=== PATIENT | female | born 1945 | race Caucasian/White ===

== ENCOUNTER 2020-12-27 03:19 | Inpatient (IN) ==
[2020-12-27] MEDS ORDERED: Naloxone 0.4 MG/ML INJ IVP PRN (12:17)
[2020-12-27] MEDS ORDERED: Dextrose Gel 15 GM/37.5 ML TUBE PO PRN ×2 (14:44)
[2020-12-27] MEDS ORDERED: D5% in Water 1,000 ML IVC PRN (14:44)
[2020-12-27] MEDS ORDERED: *HR* Dextrose 50 % in Water (Vial) 50 ML VIAL IVP PRN (14:44)
[2020-12-27] MEDS ORDERED: Albuterol 2.5 MG/3 ML NEBULIZER IH PRN (15:26)
[2020-12-27] MEDS: Ipratropium/Albuterol Neb 3 ML IH SCH ×3 (15:56→23:54)
[2020-12-27] MEDS: Insulin LISPRO 300 UNITS/3 ML VIAL SUBQ SCH ×2 (17:19→20:43)
[2020-12-27] MEDS: Doxycycline 100 MG CAPSULE PO SCH (20:43)
[2020-12-27] MEDS ORDERED: Gabapentin 300 MG CAPSULE PO PRN (21:13)
[2020-12-27] MEDS: ALPRAZolam 0.5 MG TABLET PO PRN (21:43)
[2020-12-27] MEDS: *HR* HYDROcodone/Acet 5/325 mg TABLET PO PRN (21:43)
[2020-12-27] MEDS: Insulin DETEMIR 100 UNIT/ML X5UNITS SUBQ SCH (21:53)
[2020-12-27 22:46] LABS: Adenovirus Not Detected (Not Detect); Bordetella Pertussis Not Detected (Not Detect); Chlamydophila pneumoniae Not Detected (Not Detect); Coronavirus 229E Not Detected (Not Detect); Coronavirus HKU1 Not Detected (Not Detect); Coronavirus NL63 Not Detected (Not Detect); Coronavirus OC43 Not Detected (Not Detect); Human Metapneumovirus Not Detected (Not Detect); Human Rhinovirus/Enterovirus Not Detected (Not Detect); Influenza A Subtype 2009 H1 Not Detected (Not Detect); Influenza B Not Detected (Not Detect); Mycoplasma pneumoniae Not Detected (Not Detect); Parainfluenza Virus 1 Not Detected (Not Detect); Parainfluenza Virus 2 Not Detected (Not Detect); Parainfluenza Virus 3 DETECTED (Not Detect); Parainfluenza Virus 4 Not Detected (Not Detect); Respiratory Syncytial Virus Not Detected (Not Detect); SARS-CoV-2 Not Detected (Not Detect)
[2020-12-27 23:14] LABS: Hepatitis B Surface Antibody < 3.10 mIU/mL
[2020-12-27 23:25] LABS: Hepatitis B Surface Antigen Nonreactive (Nonreactive)
[2020-12-28] MEDS ORDERED: *HR* Metoprolol 5 MG/5 ML VIAL IVP ONE (00:24)
[2020-12-28 03:15] LABS: Basophils % 0.3 %; Eosinophils # 0.1 K/mcL (0.0-0.6); Eosinophils % 2.4 %; Immature Granulocytes % 0.3 % (0-4); Lymphocytes # 1.2 K/mcL (0.6-4.6); Lymphocytes % 31.9 %; Mean Corpuscular HGB Conc 32.3 g/dL (31.6-35.5); Mean Corpuscular Hemoglobin 34.4 pg (28.0-33.3); Mean Corpuscular Volume 106.5 fL (83.0-100.0); Mean Platelet Volume 9.8 fL (9.4-12.4); Monocytes # 0.5 K/mcL (0.0-1.3); Monocytes % 12.3 %; Platelet Count 158 K/mcL (140-400); Red Blood Count 2.91 M/mcL (3.82-4.97); Red Cell Distribution Width 15.1 % (11.5-14.5); Segmented Neutrophils % 52.8 %; White Blood Count 3.7 K/mcL (4.3-11.1)
[2020-12-28 03:33] LABS: Calcium 8.6 mg/dL (8.6-10.3); Potassium 4.5 mEq/L (3.5-5.1)
[2020-12-28] MEDS: Ipratropium/Albuterol Neb 3 ML IH SCH ×6 (03:51→23:54)
[2020-12-28] MEDS ORDERED: DilTIAZem CD (24hr) 120 MG CAP.ER.24H PO SCH (09:00)
[2020-12-28] MEDS: Insulin LISPRO 300 UNITS/3 ML VIAL SUBQ SCH ×4 (10:20→19:44)
[2020-12-28] MEDS ORDERED: 0.9 % Sodium Chloride 250 ML IVC PRN (10:48)
[2020-12-28] MEDS: predniSONE 20 MG TABLET PO SCH (10:52)
[2020-12-28] MEDS: allopurinoL 100 MG TABLET PO SCH (10:52)
[2020-12-28] MEDS: DilTIAZem CD (24hr) 180 MG CAP.ER.24H PO SCH (10:53)
[2020-12-28] MEDS: Benzonatate 100 MG CAPSULE PO SCH ×3 (11:00→19:47)
[2020-12-28] MEDS ORDERED: 0.9 % Sodium Chloride 1,000 ML PRIME SCH (11:00)
[2020-12-28] MEDS: Doxycycline 100 MG CAPSULE PO SCH ×2 (11:00→19:47)
[2020-12-28] MEDS: Sennosides/Docusate Sodium TABLET PO SCH (19:46)
[2020-12-28] MEDS: Insulin DETEMIR 100 UNIT/ML X5UNITS SUBQ SCH (19:48)
[2020-12-28] MEDS ORDERED: Menthol 1 EACH LOZENGE PO PRN (22:42)
[2020-12-29 03:53] LABS: Eosinophils % 0.3 %; Hematocrit 29.8 % (35.3-44.9); Hemoglobin 9.4 g/dL (11.5-15.4); Immature Granulocytes % 0.5 % (0-4); Lymphocytes # 0.6 K/mcL (0.6-4.6); Lymphocytes % 14.9 %; Mean Corpuscular HGB Conc 31.5 g/dL (31.6-35.5); Mean Corpuscular Hemoglobin 33.9 pg (28.0-33.3); Mean Corpuscular Volume 107.6 fL (83.0-100.0); Mean Platelet Volume 9.8 fL (9.4-12.4); Monocytes # 0.5 K/mcL (0.0-1.3); Monocytes % 11.6 %; Neutrophils # 2.8 K/mcL (1.6-8.9); Platelet Count 144 K/mcL (140-400); Red Blood Count 2.77 M/mcL (3.82-4.97); Red Cell Distribution Width 14.8 % (11.5-14.5); Segmented Neutrophils % 72.7 %; White Blood Count 3.9 K/mcL (4.3-11.1)
[2020-12-29] MEDS: Ipratropium/Albuterol Neb 3 ML IH SCH ×6 (03:57→23:45)
[2020-12-29 04:09] LABS: Calcium 8.5 mg/dL (8.6-10.3); Potassium 4.4 mEq/L (3.5-5.1)
[2020-12-29] MEDS: Insulin LISPRO 300 UNITS/3 ML VIAL SUBQ SCH ×4 (07:49→19:56)
[2020-12-29] MEDS: allopurinoL 100 MG TABLET PO SCH (08:03)
[2020-12-29] MEDS: Benzonatate 100 MG CAPSULE PO SCH ×3 (08:03→21:19)
[2020-12-29] MEDS: Doxycycline 100 MG CAPSULE PO SCH ×2 (08:03→21:19)
[2020-12-29] MEDS: DilTIAZem CD (24hr) 180 MG CAP.ER.24H PO SCH (08:03)
[2020-12-29] MEDS: predniSONE 20 MG TABLET PO SCH (08:04)
[2020-12-29] MEDS: *HR* Heparin 5,000 UNIT/ML VIAL SQ SCH (17:04)
[2020-12-29] MEDS ORDERED: Ergocalciferol (VIT D2) 50,000 UNIT (1.25MG) CAP PO SCH (21:13)
[2020-12-29] MEDS: Insulin DETEMIR 100 UNIT/ML X5UNITS SUBQ SCH (21:18)
[2020-12-29] MEDS: Sennosides/Docusate Sodium TABLET PO SCH (21:19)
[2020-12-29] MEDS: *HR* HYDROcodone/Acet 5/325 mg TABLET PO PRN (21:26)
[2020-12-29] MEDS: ALPRAZolam 0.5 MG TABLET PO PRN (21:27)
[2020-12-30 02:32] LABS: Basophils % 0.2 %; Hematocrit 30.9 % (35.3-44.9); Immature Granulocytes % 0.7 % (0-4); Lymphocytes # 0.5 K/mcL (0.6-4.6); Mean Corpuscular HGB Conc 32.4 g/dL (31.6-35.5); Mean Corpuscular Hemoglobin 34.2 pg (28.0-33.3); Mean Corpuscular Volume 105.8 fL (83.0-100.0); Mean Platelet Volume 9.9 fL (9.4-12.4); Monocytes # 0.4 K/mcL (0.0-1.3); Monocytes % 9.3 %; Neutrophils # 3.6 K/mcL (1.6-8.9); Platelet Count 161 K/mcL (140-400); Red Blood Count 2.92 M/mcL (3.82-4.97); Red Cell Distribution Width 14.7 % (11.5-14.5); Segmented Neutrophils % 78.8 %; White Blood Count 4.5 K/mcL (4.3-11.1)
[2020-12-30 02:52] LABS: Calcium 8.8 mg/dL (8.6-10.3); Potassium 4.2 mEq/L (3.5-5.1)
[2020-12-30] MEDS: Ipratropium/Albuterol Neb 3 ML IH SCH ×3 (03:41→11:23)
[2020-12-30] MEDS: *HR* Heparin 5,000 UNIT/ML VIAL SQ SCH (06:02)
[2020-12-30] MEDS: Insulin LISPRO 300 UNITS/3 ML VIAL SUBQ SCH (07:26)
[2020-12-30] MEDS: Doxycycline 100 MG CAPSULE PO SCH (08:05)
[2020-12-30] MEDS: predniSONE 20 MG TABLET PO SCH (08:05)
[2020-12-30] MEDS: Benzonatate 100 MG CAPSULE PO SCH (08:05)
[2020-12-30 08:06] VITALS: BP 119/74
[2020-12-30] MEDS: DilTIAZem CD (24hr) 180 MG CAP.ER.24H PO SCH (08:06)
[2020-12-30] MEDS: allopurinoL 100 MG TABLET PO SCH (08:06)
== END 2020-12-30 12:15 | disposition home health service (06) | DRG 202 ==
LOC: 2NENU → SUATTDRO 10:13
PROVIDERS: ADMIT Internal Medicine; ATTEND Internal Medicine

== ENCOUNTER 2021-10-06 18:22 | Observation (INO) ==
[2021-10-06] MEDS ORDERED: Melatonin 3 MG TABLET PO PRN (21:16)
[2021-10-06] MEDS ORDERED: Ondansetron 4 MG/2 ML VIAL IVP PRN (21:16)
[2021-10-06] MEDS ORDERED: Acetaminophen 325 MG TABLET PO PRN (21:16)
[2021-10-06] MEDS ORDERED: Naloxone 0.4 MG/ML INJ IVP PRN (21:16)
[2021-10-06] MEDS ORDERED: *HR* Promethazine 25 MG/ML VIAL IM PRN (21:16)
[2021-10-06] MEDS ORDERED: *HR* Dextrose 50 % in Water (Syg) 50 ML SYRINGE IVP PRN (23:16)
[2021-10-06] MEDS ORDERED: Dextrose 4 GM Chewable Tablets PO PRN ×2 (23:16)
[2021-10-06] MEDS ORDERED: D5% in Water 1,000 ML IVC PRN (23:16)
[2021-10-06 23:38] LABS: Calcium 9.5 mg/dL (8.6-10.3); Potassium 6.6 mEq/L (3.5-5.1)
[2021-10-06] MEDS ORDERED: Insulin Human Regular 10 UNIT in 0.9 % Sodium Chloride 10 ML IV ONE (23:41)
[2021-10-06] MEDS ORDERED: *HR* Dextrose 50 % in Water (Syg) 50 ML SYRINGE IVP ONE (23:45)
[2021-10-07] MEDS: *HR* HYDROcodone/Acet 5/325 mg TABLET PO PRN ×3 (01:01→21:06)
[2021-10-07 03:14] LABS: Basophils % 0.2 %; Hematocrit 31.2 % (35.3-44.9); Hemoglobin 10.4 g/dL (11.5-15.4); Immature Granulocytes % 0.6 % (0-4); Lymphocytes # 0.5 K/mcL (0.6-4.6); Lymphocytes % 8.9 %; Mean Corpuscular HGB Conc 33.3 g/dL (31.6-35.5); Mean Corpuscular Hemoglobin 34.7 pg (28.0-33.3); Mean Platelet Volume 9.9 fL (9.4-12.4); Monocytes # 0.1 K/mcL (0.0-1.3); Neutrophils # 4.8 K/mcL (1.6-8.9); Platelet Count 194 K/mcL (140-400); Red Cell Distribution Width 14.4 % (11.5-14.5); Segmented Neutrophils % 88.3 %; White Blood Count 5.4 K/mcL (4.3-11.1)
[2021-10-07 03:22] LABS: INR 1.1; Prothrombin Time 12.3 Seconds (9.4-12.1)
[2021-10-07 03:31] LABS: Magnesium 2.3 mg/dL (1.6-2.6); Phosphorous 4.1 mg/dL (2.7-4.5)
[2021-10-07] MEDS: *HR* Heparin 5,000 UNIT/ML VIAL SQ SCH ×3 (06:35→21:08)
[2021-10-07 06:38] LABS: Calcium 9.3 mg/dL (8.6-10.3); Potassium 6.5 mEq/L (3.5-5.1)
[2021-10-07] MEDS ORDERED: 0.9 % Sodium Chloride 250 ML IVC PRN (08:17)
[2021-10-07] MEDS: Insulin LISPRO 300 UNITS/3 ML VIAL SUBQ SCH ×3 (08:23→17:28)
[2021-10-07] MEDS ORDERED: 0.9 % Sodium Chloride 1,000 ML PRIME SCH (08:30)
[2021-10-07] MEDS ORDERED: ALPRAZolam 0.5 MG TABLET PO PRN (10:17)
[2021-10-07] MEDS ORDERED: Insulin LISPRO 300 UNITS/3 ML VIAL SUBQ SCH (21:00)
[2021-10-07] MEDS ORDERED: Insulin DETEMIR 100 UNIT/ML X5UNITS SUBQ SCH (21:00)
[2021-10-07] MEDS: Nystatin POWDER 30 GM BOTTLE TP SCH (21:07)
[2021-10-08 04:25] LABS: Hepatitis B Surface Antigen Nonreactive (Nonreactive)
[2021-10-08] MEDS: *HR* Heparin 5,000 UNIT/ML VIAL SQ SCH ×2 (05:16→17:10)
[2021-10-08] MEDS: *HR* HYDROcodone/Acet 5/325 mg TABLET PO PRN (05:22)
[2021-10-08 05:38] LABS: Hepatitis B Surface Antibody 10.91 mIU/mL
[2021-10-08] MEDS ORDERED: Gabapentin 300 MG CAPSULE PO PRN (07:08)
[2021-10-08] MEDS ORDERED: Ipratropium 1 PUFF INHALER IH PRN (08:38)
[2021-10-08] MEDS ORDERED: allopurinoL 100 MG TABLET PO SCH (09:00)
[2021-10-08] MEDS ORDERED: DilTIAZem CD (24hr) 120 MG CAP.ER.24H PO SCH (09:00)
[2021-10-08] MEDS: Insulin LISPRO 300 UNITS/3 ML VIAL SUBQ SCH ×4 (09:04→17:18)
[2021-10-08] MEDS: Nystatin POWDER 30 GM BOTTLE TP SCH ×2 (09:39→17:10)
[2021-10-08 09:55] LABS: Basophils % 0.6 %; Eosinophils # 0.1 K/mcL (0.0-0.6); Eosinophils % 1.7 %; Hematocrit 30.3 % (35.3-44.9); Hemoglobin 10.2 g/dL (11.5-15.4); Immature Granulocytes % 2.4 % (0-4); Lymphocytes # 1.6 K/mcL (0.6-4.6); Lymphocytes % 24.2 %; Mean Corpuscular HGB Conc 33.7 g/dL (31.6-35.5); Mean Corpuscular Hemoglobin 34.3 pg (28.0-33.3); Mean Platelet Volume 10.7 fL (9.4-12.4); Monocytes # 0.7 K/mcL (0.0-1.3); Monocytes % 11.1 %; Platelet Count 161 K/mcL (140-400); Red Blood Count 2.97 M/mcL (3.82-4.97); Red Cell Distribution Width 15.1 % (11.5-14.5); White Blood Count 6.6 K/mcL (4.3-11.1)
[2021-10-08] MEDS ORDERED: Ipratropium 1 PUFF INHALER IH SCH (10:00)
[2021-10-08 10:23] LABS: Calcium 9.1 mg/dL (8.6-10.3); Potassium 6.1 mEq/L (3.5-5.1)
[2021-10-08 10:40] LABS: Albumin 3.4 g/dL (3.5-5.7); Phosphorous 5.4 mg/dL (2.7-4.5)
[2021-10-08] MEDS ORDERED: Ethyl Chloride Spray Bottle (104 SPRAY/BOTTLE) TP PRN (12:13)
[2021-10-08] MEDS ORDERED: 0.9 % Sodium Chloride 1,000 ML PRIME SCH (12:15)
[2021-10-08] MEDS ORDERED: *HR* HYDROcodone/Acet 5/325 mg TABLET PO PRN (13:01)
[2021-10-08 19:24] VITALS: BP 117/55; PULSE 70; TEMP 98.4; O2SAT 96
== END 2021-10-08 20:00 | disposition home health service (06) ==
LOC: 2ANU → SUATTDRO 20:32
PROVIDERS: ADMIT Internal Medicine; ATTEND Internal Medicine

== ENCOUNTER 2022-01-17 17:25 | Inpatient (IN) ==
[2022-01-17] MEDS ORDERED: Naloxone 0.4 MG/ML INJ IVP PRN (19:29)
[2022-01-17] MEDS ORDERED: Ondansetron 4 MG/2 ML VIAL IVP PRN (19:29)
[2022-01-17] MEDS ORDERED: Acetaminophen 325 MG TABLET PO PRN (19:29)
[2022-01-17] MEDS ORDERED: 0.9 % Sodium Chloride 500 ML IVC ONE (19:31)
[2022-01-17] MEDS ORDERED: *HR* Dextrose 50 % in Water (Syg) 50 ML SYRINGE IVP PRN (19:37)
[2022-01-17] MEDS ORDERED: D5% in Water 1,000 ML IVC PRN (19:37)
[2022-01-17] MEDS ORDERED: Dextrose Gel 15 GM/37.5 ML TUBE PO PRN ×2 (19:37)
[2022-01-17] MEDS: Insulin LISPRO 300 UNITS/3 ML VIAL SUBQ SCH (20:06)
[2022-01-17] MEDS ORDERED: ALPRAZolam 0.5 MG TABLET PO PRN (20:25)
[2022-01-17] MEDS ORDERED: Gabapentin 300 MG CAPSULE PO PRN (20:25)
[2022-01-17] MEDS: Nystatin POWDER 30 GM BOTTLE TP SCH (22:20)
[2022-01-17] MEDS: Insulin DETEMIR 100 UNIT/ML X5UNITS SUBQ SCH (22:21)
[2022-01-18] MEDS ORDERED: Insulin LISPRO 300 UNITS/3 ML VIAL SUBQ SCH
[2022-01-18 02:32] LABS: Basophils % 0.4 %; Eosinophils # 0.1 K/mcL (0.0-0.6); Eosinophils % 2.5 %; Hematocrit 29.9 % (35.3-44.9); Hemoglobin 9.3 g/dL (11.5-15.4); Immature Granulocytes % 0.2 % (0-4); Lymphocytes # 0.9 K/mcL (0.6-4.6); Lymphocytes % 19.3 %; Mean Corpuscular HGB Conc 31.1 g/dL (31.6-35.5); Mean Corpuscular Hemoglobin 33.2 pg (28.0-33.3); Mean Corpuscular Volume 106.8 fL (83.0-100.0); Mean Platelet Volume 10.5 fL (9.4-12.4); Monocytes # 0.5 K/mcL (0.0-1.3); Neutrophils # 3.1 K/mcL (1.6-8.9); Platelet Count 170 K/mcL (140-400); Red Cell Distribution Width 14.9 % (11.5-14.5); Segmented Neutrophils % 66.6 %; White Blood Count 4.7 K/mcL (4.3-11.1)
[2022-01-18 02:54] LABS: Albumin 3.2 g/dL (3.5-5.7); Calcium 8.3 mg/dL (8.6-10.3); Phosphorous 4.8 mg/dL (2.7-4.5); Potassium 4.4 mEq/L (3.5-5.1)
[2022-01-18 02:56] LABS: Magnesium 2.2 mg/dL (1.6-2.6); Phosphorous 4.8 mg/dL (2.7-4.5)
[2022-01-18 03:10] LABS: Thyroid Stimulating Hormone 1.437 mcIU/mL (0.340-5.600)
[2022-01-18 04:02] LABS: INR 1.1; Prothrombin Time 12.3 Seconds (9.4-12.1)
[2022-01-18] MEDS: Insulin LISPRO 300 UNITS/3 ML VIAL SUBQ SCH ×3 (07:09→16:38)
[2022-01-18] MEDS: Nystatin POWDER 30 GM BOTTLE TP SCH ×3 (08:19→21:12)
[2022-01-18] MEDS: *HR* HYDROcodone/Acet 5/325 mg TABLET PO PRN ×2 (08:20→23:49)
[2022-01-18] MEDS ORDERED: (Linagliptin [Tradjenta] 5 MG Tablet) PO SCH (09:00)
[2022-01-18] MEDS ORDERED: 0.9 % Sodium Chloride 250 ML IVC PRN (09:44)
[2022-01-18] MEDS ORDERED: 0.9 % Sodium Chloride 2,000 ML PRIME SCH (09:45)
[2022-01-18] MEDS ORDERED: Albumin 25% 25gram/100mL 25 GM/100 ML IV.SOLN IVPB ONE (11:08)
[2022-01-18] MEDS ORDERED: Albumin 25% 25gram/100mL 25 GM/100 ML IV.SOLN ONE (11:12)
[2022-01-18] MEDS ORDERED: Ethyl Chloride Spray Bottle (104 SPRAY/BOTTLE) TP PRN (11:19)
[2022-01-18 11:25] LABS: Basophils % 0.4 %; Eosinophils # 0.2 K/mcL (0.0-0.6); Eosinophils % 3.3 %; Hematocrit 28.3 % (35.3-44.9); Hemoglobin 8.9 g/dL (11.5-15.4); Immature Granulocytes % 0.2 % (0-4); Mean Corpuscular HGB Conc 31.4 g/dL (31.6-35.5); Mean Corpuscular Hemoglobin 33.1 pg (28.0-33.3); Mean Corpuscular Volume 105.2 fL (83.0-100.0); Mean Platelet Volume 10.5 fL (9.4-12.4); Monocytes # 0.5 K/mcL (0.0-1.3); Monocytes % 10.8 %; Neutrophils # 3.1 K/mcL (1.6-8.9); Platelet Count 165 K/mcL (140-400); Red Blood Count 2.69 M/mcL (3.82-4.97); Red Cell Distribution Width 14.9 % (11.5-14.5); Segmented Neutrophils % 64.3 %; White Blood Count 4.8 K/mcL (4.3-11.1)
[2022-01-18 17:52] LABS: Bacteria,Urine Few per hpf (None-Few); Bilirubin,Urine Negative (Negative); Blood,Urine Moderate (Negative); Clarity,Urine Ex.Turbid (Clear); Color,Urine Yellow (Yellow); Glucose,Urine (UA) Normal (Normal); Ketones,Urine Negative (Negative); Leukocyte Esterase,Urine Large (Negative); Mucus,Urine Few per lpf (None-Few); Nitrite,Urine Negative (Negative); PH,Urine 7.5 pH Units (5.0-8.0); Protein,Urine 200 mg/dL (Neg-Trace); RBC,Urine 15-30 per hpf (0-3); Specific Gravity,Urine 1.022 (1.010-1.025); Squamous Epithelial Cell,Urine Moderate per hpf (None-Few); WBC,Urine TNTC per hpf (0-3)
[2022-01-18 18:12] LABS: Hepatitis B Surface Antibody < 3.10 mIU/mL
[2022-01-18 18:25] LABS: Hepatitis B Surface Antigen Nonreactive (Nonreactive)
[2022-01-18] MEDS: Insulin DETEMIR 100 UNIT/ML X5UNITS SUBQ SCH (21:12)
[2022-01-19 05:32] LABS: Basophils % 0.2 %; Eosinophils # 0.1 K/mcL (0.0-0.6); Eosinophils % 2.8 %; Hemoglobin 8.6 g/dL (11.5-15.4); Immature Granulocytes % 0.2 % (0-4); Lymphocytes # 0.7 K/mcL (0.6-4.6); Lymphocytes % 16.1 %; Mean Corpuscular HGB Conc 31.9 g/dL (31.6-35.5); Mean Corpuscular Hemoglobin 33.3 pg (28.0-33.3); Mean Corpuscular Volume 104.7 fL (83.0-100.0); Mean Platelet Volume 10.2 fL (9.4-12.4); Monocytes # 0.4 K/mcL (0.0-1.3); Monocytes % 10.1 %; Neutrophils # 3.1 K/mcL (1.6-8.9); Platelet Count 151 K/mcL (140-400); Red Blood Count 2.58 M/mcL (3.82-4.97); Red Cell Distribution Width 14.7 % (11.5-14.5); Segmented Neutrophils % 70.6 %; White Blood Count 4.4 K/mcL (4.3-11.1)
[2022-01-19 05:52] LABS: Calcium 8.5 mg/dL (8.6-10.3); Potassium 4.7 mEq/L (3.5-5.1)
[2022-01-19] MEDS: Insulin LISPRO 300 UNITS/3 ML VIAL SUBQ SCH ×3 (07:10→16:46)
[2022-01-19] MEDS: allopurinoL 100 MG TABLET PO SCH (07:51)
[2022-01-19] MEDS: Nystatin POWDER 30 GM BOTTLE TP SCH ×3 (09:53→20:56)
[2022-01-19] MEDS: *HR* HYDROcodone/Acet 5/325 mg TABLET PO PRN ×2 (10:15→20:56)
[2022-01-19] MEDS: Insulin DETEMIR 100 UNIT/ML X5UNITS SUBQ SCH (20:56)
[2022-01-20 05:42] LABS: Hematocrit 26.7 % (35.3-44.9); Hemoglobin 8.3 g/dL (11.5-15.4); Mean Corpuscular HGB Conc 31.1 g/dL (31.6-35.5); Mean Corpuscular Hemoglobin 32.7 pg (28.0-33.3); Mean Corpuscular Volume 105.1 fL (83.0-100.0); Platelet Count 149 K/mcL (140-400); Red Blood Count 2.54 M/mcL (3.82-4.97); Red Cell Distribution Width 14.5 % (11.5-14.5)
[2022-01-20 06:02] LABS: Calcium 8.5 mg/dL (8.6-10.3); Magnesium 2.1 mg/dL (1.6-2.6); Phosphorous 4.8 mg/dL (2.7-4.5)
[2022-01-20 07:39] VITALS: PULSE 61; O2SAT 99
[2022-01-20] MEDS: allopurinoL 100 MG TABLET PO SCH (07:55)
[2022-01-20] MEDS: Insulin LISPRO 300 UNITS/3 ML VIAL SUBQ SCH ×2 (07:55→12:33)
[2022-01-20] MEDS ORDERED: *HR* Heparin 10,000 UNIT/10 ML VIAL IV PRN (07:55)
[2022-01-20] MEDS ORDERED: 0.9 % Sodium Chloride 250 ML IVC PRN (07:55)
[2022-01-20] MEDS: Nystatin POWDER 30 GM BOTTLE TP SCH ×2 (07:56→15:30)
[2022-01-20 12:35] VITALS: BP 111/75
[2022-01-20 12:39] VITALS: TEMP 98
== END 2022-01-20 16:10 | disposition home health service (06) | DRG 312 ==
LOC: 2ANU → SUATTDRO 19:29
PROVIDERS: ADMIT Family Medicine; ATTEND Family Medicine